=== PATIENT | male | born 1985 | race Caucasian/White ===

== ENCOUNTER 2016-09-23 19:19 | Emergency (ER) | payer MEDICAID ==
[~2016-09-23] VITALS: Ht 172.7 cm; Wt 106.5 kg
[~2016-09-23 19:19] MED LIST: ALBU8.5H3
[2016-09-23 20:05] VITALS: Ht 172.7 cm; Wt 106.5 kg
--- NOTE | 2016-09-23 20:24 | ERD ---
ER Documentation Chief Complaint Date/Time DATE: 09/23/16 TIME: 20:22 Chief Complaint cough, colds and fever 3 days HPI 31-year-old male presents with chief complaint of productive cough and fever 3 days. Associated symptoms include sore throat and shortness of breath patient has a history of asthma. Denies currently being short of breath. Denies nausea, vomiting, diarrhea, neck stiffness, ear pain, chest pain, dysphagia, drooling, and abdominal pain. He has only been taking Tylenol for relief of his fever, has not tried any other OTC meds. He denies any recent travel. He has no sick contacts in his home. He denies getting a flu shot this year. ROS All systems reviewed and are negative except as per history of present illness. Medications Home Meds Active Scripts Sodium Chloride (Saline Nasal Mist) 126 Ml Mist, 1 SPRAY NASAL QID for 7 Days, # 1 BOTTLE Prov:Chelsea Lui PA-C 09/23/16 Tkcqhkpboom-C-Uuwrkuwfil Hb* (Guaifenesin* DM Syrup) 120 Ml Syrup, 10 ML PO Q4H Y for COUGH for 7 Days, #1 BOTTLE Prov:Chelsea Lui PA-C 09/23/16 Albuterol Sulfate* (Ventolin HFA*) 18 Gm Hfa.aer.ad, 2 PUFF INHALATION Q4H, #1 INHALER Prov:Chelsea Lui PA-C 09/23/16 Ibuprofen* (Motrin*) 600 Mg Tab, 600 MG PO Q6H Y for PAIN for 10 Days, #30 TAB Prov:Chelsea Lui PA-C 09/23/16 Reported Medications Albuterol Sulfate* (Proair HFA*) 8.5 Gm Hfa.aer.ad 06/26/11 Allergies Allergies: Coded Allergies: No Known Drug Allergies (Verified Allergy, 06/26/11) PMhx/Soc History of Surgery: No Anesthesia Reaction: No Hx Neurological Disorder: No Hx Respiratory Disorders: Yes (ASTHMA) Hx Cardiac Disorders: No Hx Psychiatric Problems: No Hx Miscellaneous Medical Probl: No Hx Alcohol Use: Yes (OCCASSIONAL) Hx Substance Use: No Hx Tobacco Use: No Physical Exam Vitals Vital Signs Date Time Temp Pulse Resp B/P Pulse Ox O2 Delivery O2 Flow Rate FiO2 09/23/16 20:05 98.5 92 18 132/80 96 Physical Exam GENERAL: Non-toxic. No apparent signs of distress. HEENT: Atraumatic. Bilateral eyes are PERRL EOM intact. Normal conjunctiva, no injection. No eyelid or lower eyelid swelling noted. Ears: Normal tympanic membrane, no erythema or bulging. No ear canal swelling. No ear discharge. Nose : no nasal discharge. Throat: Oropharynx normal. Tongue pink and moist. Tonsillar erythema with no swelling or tonsillar exudates. Uvula is midline. No lymphadenopathy. No trismus. No pooling of secretions. LUNGS: Clear to auscultation. No accessory muscle use. No wheezing, no crackles. No signs or symptoms of respiratory distress. HEART: Regular rate and rhythm. No murmurs, clicks, rubs or gallops. NEURO: Normal mental status for age. Good muscle tone. SKIN: There is no apparent rash, petechiae, erythema or swelling. Good skin turgor. Procedures/MDM Patient states he has a history of asthma however he is out of his albuterol inhaler, which is what really brought into the ER tonight. However currently he denies any shortness of breath area on exam his lungs are clear to auscultation bilaterally with no wheezing, rhonchi or rales. Patient states that he only uses a rescue inhaler, albuterol, as needed for shortness of breath. He displays no signs of respiratory distress, is in no acute distress currently. Patients multiple complaints are likely to be due to viral etiology. On examination there was no tonsillar edema or exudate, TMs were pink/pearly and non-bulging, lungs were CTAB w/o rhonchi or rales, and patient has no meningismus. Appears to be in NAD, vitals are stable. Therefore, I do not believe that any imaging or blood work is warranted. I have explained to the patient that antibiotics are not effective against viral infections, and can further contribute to antibiotic resistance. Patient advised to practice good hand hygiene to prevent spread of viruses. Patient advised to stay hydrated and use the following medications for symptomatic relief: - Motrin 600mg (do NOT exceed 3200 mg per day) - Guaifenesin DM for cough - Saline nasal mist for nasal dryness - Cepacol Lozenges for sore throat or warm salt water gargles I have a low suspicion for PE, pneumonia, TB, strep pharyngitis, peritonsillar abscess, epiglottitis, OM, meningitis, and sepsis. Patient is stable for discharge for and outpatient management at this time. Advised to follow-up with PCP within 1-2 days. Patient is afebrile at time of discharge. Departure Diagnosis: Primary Impression: URI (upper respiratory infection) URI type: unspecified URI Qualified Code: J06.9 - Upper respiratory tract infection, unspecified type Condition: Good Patient Instructions: Uri, Viral, No Abx (Adult) Chelsea Lui PA-C Sep 23, 2016 20:24
[2016-09-23] MEDS ORDERED: IBUP-1542 PO (20:27)
[2016-09-23] MEDS ORDERED: GUAI120S26 PO (20:27)
[2016-09-23] MEDS ORDERED: SODI126M NASAL (20:27)
[2016-09-23] MEDS ORDERED: ALBU18HF INHALATION (20:27)
== END 2016-09-23 20:28 | disposition home or self-care (01) ==
LOC: E/R 19:19
DX: J06.9 Acute upper respiratory infection, unspecified (principal); J45.909 Unspecified asthma, uncomplicated
CPT/HCPCS: 99283